=== PATIENT | female | born 2000 | race African-American/Black ===

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

== ENCOUNTER 2019-02-14 11:32 | Emergency (ER) | payer SELFPAY ==
[2019-02-14] MEDS ORDERED: Ketorolac Tromethamine 30 MG/ML VIAL ONE (12:55)
[2019-02-14] MEDS ORDERED: Ketorolac Tromethamine 60 MG/2 ML VIAL ONE (12:59)
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
[2019-02-14] MEDS ORDERED: Bacitracin 1 PK ONE (14:00)
== END 2019-02-14 14:06 | disposition home or self-care (01) ==
LOC: ERS 11:32
DX: S02.31XA Fracture of orbital floor, right side, initial encounter for closed fracture (principal); J45.909 Unspecified asthma, uncomplicated; F41.9 Anxiety disorder, unspecified; F31.9 Bipolar disorder, unspecified; F17.290 Nicotine dependence, other tobacco product, uncomplicated; F90.9 Attention-deficit hyperactivity disorder, unspecified type; W22.8XXA Striking against or struck by other objects, initial encounter
CPT/HCPCS: 70486; 96372; J1885

== ENCOUNTER 2019-04-07 11:59 | Emergency (ER) | payer SELFPAY ==
[2019-04-07 12:29] LABS: #Basophils 0.1 thou/uL (0.0-0.2); #Eosinphils 0.1 thou/uL (0.0-0.7); #Lymphocytes 2.1 thou/uL (1.20-3.40); #Monocytes 0.5 thou/uL (0.11-0.59); #Neutrophils 6.2 thou/uL (1.40-6.50); %Basophils 1.2 % (0.0-1.0); %Eosinophils 1.3 % (0.0-10.0); %Lymphocytes 22.8 % (28.0-48.0); %Monocytes 5.8 % (0.0-4.0); Hemoglobin 13.7 g/dL (12.0-16.0); Mean Corpuscular HGB CONC 34.4 g/dL (32.0-36.0); Mean Corpuscular Hemoglobin 29.2 pg (25.0-35.0); Mean Platelet Volume 7.9 fL (7.4-10.4); Platelet Count 206 thou/uL (130-400); RBC Distribution Width 12.7 % (11.5-14.5); Red Blood Cell (RBC) Count 4.67 mill/uL (4.00-5.20)
--- NOTE | 2019-04-07 13:00 | ULT ---
EXAM: Pelvic ultrasound HISTORY: Pelvic pain in a female COMPARISON: None TECHNIQUE: Multiple grayscale and color Doppler images were obtained in a transabdominal and transvag inal pelvic ultrasound. Spectral analysis of the Doppler waveforms of the ovaries were performed. FINDINGS: UTERUS: There is an intrauterine gestational sac. This contains a yolk sac and pole. Descanso-rump length: 2 mm which estimates gestational age at 5 weeks 5 days. A heart rate is unable to be detected at this time. A small hypoechoic area is seen adjacent to the gestational sac which could represent a small subchor ionic hemorrhage. No free fluid is seen in the pelvis. RIGHT OVARY: Normal flow without focal mass. LEFT OVARY: Normal flow without focal mass. IMPRESSION: Single intrauterine with estimated age of 5 weeks 5 days.
[2019-04-07 13:14] LABS: Bilirubin Negative (Negative); Blood, Urine 2+ (Negative); Clarity Turbid (Clear); Glucose, Urine (Dipstick) Normal (Negative); Leukocyte 500 Leu/uL (Negative); Nitrite Negative (Negative); Protein, Urine (Dipstick) 30 mg/dL (Neg-Trace); Urobilinogen Normal mg/dL (Less than 2); WBC/HPF Greater than 50 HPF (0-3)
[2019-04-07 13:16] LABS: Pregnancy Test - Urine (BHCG) POSITIVE (Negative); Pregu Control Background? CLEAR/WHITE (CLR/WHITE); Pregu Control Bar Appear? YES (CONTROL BAR); Specific Gravity 1.018 (1.002-1.036)
[2019-04-07 13:21] LABS: Bacteria/HPF 2+ HPF (None Seen)
== END 2019-04-07 13:45 | disposition home or self-care (01) ==
LOC: ERS 11:59
DX: O20.0 Threatened abortion (principal); O99.511 Diseases of the respiratory system complicating pregnancy, first trimester; J45.909 Unspecified asthma, uncomplicated; O99.341 Other mental disorders complicating pregnancy, first trimester; F31.9 Bipolar disorder, unspecified; F90.9 Attention-deficit hyperactivity disorder, unspecified type; F41.9 Anxiety disorder, unspecified; F17.290 Nicotine dependence, other tobacco product, uncomplicated; O99.331 Smoking (tobacco) complicating pregnancy, first trimester; Z3A.01 Less than 8 weeks gestation of pregnancy
CPT/HCPCS: 36415; 76856; 81003; 81015; 81025; 84702; 85025; 86900; 86901; 87480; 87491; 87510; 87591; 87660

== ENCOUNTER 2019-05-09 22:33 | Emergency (ER) | payer OTHER, SELFPAY ==
[2019-05-09 23:14] LABS: #Basophils 0.1 thou/uL (0.0-0.2); #Eosinphils 0.1 thou/uL (0.0-0.7); #Lymphocytes 2.8 thou/uL (1.20-3.40); #Monocytes 0.9 thou/uL (0.11-0.59); %Basophils 0.4 % (0.0-1.0); %Eosinophils 0.9 % (0.0-10.0); %Monocytes 7.1 % (0.0-4.0); %Neutrophils 69.6 % (31.0-61.0); Hemoglobin 11.7 g/dL (12.0-16.0); Mean Corpuscular Hemoglobin 29.8 pg (25.0-35.0); Mean Corpuscular Volume 85.1 fL (78.0-98.0); Mean Platelet Volume 8.2 fL (7.4-10.4); Platelet Count 214 thou/uL (130-400); RBC Distribution Width 12.7 % (11.5-14.5); Red Blood Cell (RBC) Count 3.94 mill/uL (4.00-5.20); White Blood Cell (WBC) Count 12.9 thou/uL (4.8-10.8)
[2019-05-09 23:43] LABS: ALT (SGPT) Less than 7 U/L (8-55); AST (SGOT) 11 U/L (5-30); Alkaline Phosphatase 51 U/L (40-100); Anion Gap 11 mmol/L (10-20); BUN (Urea Nitrogen) 6 mg/dL (8.4-21.0); Bilirubin, Total 0.4 mg/dL (0.2-1.2); Calc. Creatinine Clearance 0 mL/min (70-130); Calcium 9.6 mg/dL (7.8-10.44); Carbon Dioxide 25 mmol/L (22-29); Chloride 103 mmol/L (98-107); Estimated GFR-MDRD Greater than 90; Globulin 3.2 g/dL (2.4-3.5); Glucose 78 mg/dL (70-105); Potassium 3.1 mmol/L (3.5-5.1); Protein, Total 7.2 g/dL (6.0-8.3); Sodium 136 mmol/L (136-145)
--- NOTE | 2019-05-10 00:02 | ULT ---
Pelvic ultrasound: 05/09/2019 COMPARISON: None HISTORY: female with vaginal spotting TECHNIQUE: Multiplanar grayscale sonographic imaging of the pelvis obtained the transverse abdominal imaging. The ovaries are assessed with color flow and spectral analysis FINDINGS: There is an intrauterine gestational sac containing a single pole with a crown-rump l ength of 3.3 cm, correlating with a 10 week 1 day gestation. heart rate is 171 bpm. There is a hypoechoic angulated 2.6 x 2.3 x 0.7 cm collection adjacent to the gestational sac suggest ing a small subchorionic hemorrhage. Right ovary measures 3.7 x 2.1 x 2.9 cm and contains a small cyst measuring 7 mm. Right ovary demonst rates normal blood flow. Left ovary measures 2.9 x 1.1 x 1.8 cm and demonstrates normal blood flow without evidence for mass. No free fluid noted in the pelvic cul-de-sac. Estimated date of delivery is 12/05/2019 IMPRESSION: Single intrauterine gestation with heart rate of 171 bpm. Probable very small subch orionic hemorrhage as detailed above.
[2019-05-10] MEDS ORDERED: Potassium Chloride 20 MEQ TAB ONE (00:09)
== END 2019-05-10 00:15 | disposition home or self-care (01) ==
LOC: ERS 22:33
DX: O20.8 Other hemorrhage in early pregnancy (principal); O99.341 Other mental disorders complicating pregnancy, first trimester; F31.9 Bipolar disorder, unspecified; F41.9 Anxiety disorder, unspecified; F90.9 Attention-deficit hyperactivity disorder, unspecified type; Z3A.10 10 weeks gestation of pregnancy
CPT/HCPCS: 36415; 76856; 80053; 84702; 85025; 86850; 86870; 86900; 86901

== ENCOUNTER 2019-06-07 13:40 | Emergency (ER) | payer OTHER ==
[2019-06-07] MEDS ORDERED: Acetaminophen 500 MG TAB ONE (14:32)
[2019-06-07 14:48] LABS: #Basophils 0.1 thou/uL (0.0-0.2); #Eosinphils 0.1 thou/uL (0.0-0.7); #Lymphocytes 1.5 thou/uL (1.20-3.40); #Monocytes 0.7 thou/uL (0.11-0.59); #Neutrophils 12.1 thou/uL (1.40-6.50); %Basophils 0.5 % (0.0-1.0); %Eosinophils 0.4 % (0.0-10.0); %Lymphocytes 10.7 % (28.0-48.0); %Neutrophils 83.4 % (31.0-61.0); Hemoglobin 13.3 g/dL (12.0-16.0); Mean Corpuscular HGB CONC 34.9 g/dL (32.0-36.0); Mean Corpuscular Hemoglobin 29.9 pg (25.0-35.0); Mean Corpuscular Volume 85.8 fL (78.0-98.0); Mean Platelet Volume 8.2 fL (7.4-10.4); Platelet Count 243 thou/uL (130-400); RBC Distribution Width 12.4 % (11.5-14.5); Red Blood Cell (RBC) Count 4.45 mill/uL (4.00-5.20); White Blood Cell (WBC) Count 14.5 thou/uL (4.8-10.8)
[2019-06-07 15:56] LABS: Bacteria/HPF None Seen HPF (None Seen); Bilirubin Negative (Negative); Blood, Urine Negative (Negative); Clarity Clear (Clear); Glucose, Urine (Dipstick) Normal (Negative); Leukocyte 25 Leu/uL (Negative); Nitrite Negative (Negative); Protein, Urine (Dipstick) 10 mg/dL (Neg-Trace); RBC/HPF 0-3 HPF (0-3); Squamous Epithelial 0-3 HPF (0-3); Urobilinogen Normal mg/dL (Less than 2)
--- NOTE | 2019-06-07 15:57 | ULT ---
LIMITED OB ULTRASOUND: Date: 06/07/2019 HISTORY: Vaginal bleeding. FINDINGS: A single, live intrauterine gestation is seen with measurements corresponding to an estimated gestati onal age of 14 weeks 4 days and JOCELYN at 12/02/2019. measurements are as follows: BPD: 2.67 cm, 14 weeks 5 days HC: 10.36 cm, 14 weeks 6 days AC: 8.75 cm, 15 weeks 0 days FL: 1.40 cm, 14 weeks 1 day heart rate measures 158 beats/minute. Placenta is posteriorly located without evidence of placenta previa. There is a tiny subchorionic hemorrhage measuring 3.5 x 2.6 x 1.1 cm. IMPRESSION: 1. Single, live intrauterine gestation of 14 weeks 4 days estimated gestational age and JOCELYN at 12/01. 2. Small subchorionic hemorrhage. POS: [facility]
[2019-06-08 19:02] LABS: Chlamydia by PCR Not Detected (NotDetected); GC by PCR Not Detected (NotDetected)
== END 2019-06-07 16:31 | disposition home or self-care (01) ==
LOC: ERS 13:40
DX: O20.0 Threatened abortion (principal); Z3A.14 14 weeks gestation of pregnancy; O99.342 Other mental disorders complicating pregnancy, second trimester; F31.9 Bipolar disorder, unspecified; F90.9 Attention-deficit hyperactivity disorder, unspecified type
CPT/HCPCS: 36415; 76815; 81003; 81015; 84702; 85025; 86900; 86901; 87480; 87491; 87510; 87591; 87660; 93005

== ENCOUNTER 2019-09-21 15:45 | Observation (INO) | payer OTHER ==
[2019-09-21 16:43] LABS: #Basophils 0.1 thou/uL (0.0-0.2); #Eosinphils 0.1 thou/uL (0.0-0.7); #Monocytes 0.9 thou/uL (0.11-0.59); #Neutrophils 8.5 thou/uL (1.40-6.50); %Basophils 0.6 % (0.0-1.0); %Lymphocytes 17.4 % (28.0-48.0); %Monocytes 7.6 % (0.0-4.0); %Neutrophils 73.4 % (31.0-61.0); Hemoglobin 10.4 g/dL (12.0-16.0); Mean Corpuscular HGB CONC 33.2 g/dL (32.0-36.0); Mean Corpuscular Hemoglobin 28.5 pg (25.0-35.0); Mean Corpuscular Volume 85.8 fL (78.0-98.0); Mean Platelet Volume 8.9 fL (7.4-10.4); Platelet Count 175 thou/uL (130-400); RBC Distribution Width 11.7 % (11.5-14.5); Red Blood Cell (RBC) Count 3.65 mill/uL (4.00-5.20); White Blood Cell (WBC) Count 11.5 thou/uL (4.8-10.8)
[2019-09-21 17:10] LABS: ALT (SGPT) 11 U/L (8-55); AST (SGOT) 16 U/L (5-34); Albumin 3.6 g/dL (3.5-5.0); Alkaline Phosphatase 96 U/L (40-100); Anion Gap 12 mmol/L (10-20); BUN (Urea Nitrogen) Less than 4 mg/dL (7.0-18.7); Bilirubin, Total 0.3 mg/dL (0.2-1.2); Calc. Creatinine Clearance 0 mL/min (70-130); Calcium 9.1 mg/dL (7.8-10.44); Carbon Dioxide 25 mmol/L (22-29); Chloride 105 mmol/L (98-107); Estimated GFR-MDRD Greater than 90; Globulin 3.7 g/dL (2.4-3.5); Glucose 76 mg/dL (70-105); Potassium 3.3 mmol/L (3.5-5.1); Protein, Total 7.3 g/dL (6.0-8.3); Sodium 139 mmol/L (136-145)
[2019-09-21] MEDS ORDERED: Acetaminophen 500 MG TAB ONE (17:38)
[2019-09-21] MEDS ORDERED: Labetalol HCl 100 MG/20 ML VIAL ONE (17:38)
[2019-09-21] MEDS ORDERED: Ondansetron PF 4 MG/2 ML Vial IVP PRN (19:56)
[2019-09-21] MEDS ORDERED: hydrALAZINE 20 MG/ML VIAL SLOW IVP PRN (19:56)
[2019-09-21 20:27] LABS: Creatinine, Urine 50.33 mg/dL (47-110); Protein, Urine Random Quant Less than 10 mg/dL (1-14)
[2019-09-21 21:17] VITALS: BMI 21.9
[2019-09-21] MEDS ORDERED: Zolpidem Tartrate 5 MG TAB PO PRN (22:50)
[2019-09-21] MEDS: Betamet Acet/Betamet Na Ph 30 MG/5 ML VIAL IM SCH (23:05)
--- NOTE | 2019-09-22 05:49 | HP ---
PRIMARY OB: Cris Dawkins M.D. CHIEF COMPLAINT: Elevated blood pressure. HISTORY OF PRESENT ILLNESS: The patient is a 19-year-old G1, P0 female with an intrauterine at 29 weeks gestation, who is presenting to the emergency room with left arm shooting pain and neck and shoulder pain. After evaluation, the patient was thought to have a radiculopathy, and during her evaluation, the patient was noted to have elevated blood pressures with one documented at 167/103, 158/103, and 152/115. Given these findings, the patient was transferred to Labor and Delivery for further evaluation. Upon presentation, the patient denies headache, chest pain. She does report some shortness of breath with difficulty sleeping laying down, but this has been ongoing for much of her recent weeks. The patient does have a history of asthma. The patient denies chest pain. Denies nausea, vomiting, diarrhea or constipation, hip problems, knee problems, muscle weakness. She denies vaginal bleeding or leakage of fluid. She denies right upper quadrant pain. PAST MEDICAL HISTORY: Significant for bipolar disorder, anxiety, depression, ADHD and is undergoing anger management. She has a history of suicide attempts back in 2016, but denies any current stress moving her in that direction. SOCIAL HISTORY: Denies drug, alcohol, or tobacco use. ALLERGIES: NO KNOWN DRUG ALLERGIES. MEDICATIONS: vitamins. PHYSICAL EXAMINATION: VITAL SIGNS: Upon arrival to Labor and Delivery, presenting blood pressure is 140/86, heart rate of 88, respiratory rate 16, temperature 98.7. Subsequent blood pressures over 2 hours, the patient has remained in predominantly mild range pressures in the 140s over 80s to 90s, heart rates in 80s to 90s. GENERAL: She appears to be in no acute distress. She is alert, oriented, cooperative, and pleasant to interact with. HEAD: Normocephalic and atraumatic. LUNGS: Clear to auscultation bilaterally. HEART: Regular rate and rhythm. ABDOMEN: Gravid and soft, nontender. EXTREMITIES: Nontender, nonedematous. She has 1+ DTRs. No clonus. The patient has a heart tracing with fetus in the 130s with moderate long-term variability, positive 15 x 15 accelerations, positive accelerations, no decelerations. Tocometer showing irritability, but no consistent contraction pattern. LABORATORY STUDIES: CBC shows a white count of 11.5, hemoglobin of 10.4, hematocrit 31.3, and platelets of 175,000. Sodium of 139, potassium of 3.3, creatinine of 0.78, uric acid of 4.6, AST of 16, ALT of 11. Urine; random total protein is less than 10, urine creatinine of 50 making a ratio incalculable. ASSESSMENT AND PLAN: The patient is a 19-year-old female primip at 29 weeks gestation with incidental findings of elevated blood pressure. The patient's blood pressures have remained in the mild range here in Labor and Delivery, and the patient has no indication for treatment or magnesium for seizure prophylaxis. However, given the presence of the blood pressures at such an early gestational age, plan at this time is to keep the patient for steroid administration and blood pressure monitoring. Should the patient begin having signs of severe features, headache, elevated lab findings, we will administer magnesium for seizure prophylaxis. I will be notifying her primary provider, Dr. Dawkins. Fetus has had a category 1 tracing and reactive NST. The patient is being admitted for steroid administration and blood pressure observation. She has not required treatment or magnesium at this time, but we will administer when indicated. Fetus has a category 1 tracing and reactive NST. Job ID: [id number]
--- NOTE | 2019-09-22 11:27 | PDOC.EVN ---
Event Note - Event Note Event Note: No c/o. BPs stable, no severe range values seen. 2nd dose of BMX due late tonight.
[2019-09-22 11:56] LABS: SARS-CoV-2 MS2 Positive; SARS-CoV-2 N Gene Negative; SARS-CoV-2 S Gene Negative; SARS-CoV-2 by NAA Not Detected (NotDetected); SARS-CoV-2 orf1ab Negative
[2019-09-22] MEDS ORDERED: Ondansetron ODT 4 MG TAB PO PRN (13:07)
[2019-09-22] MEDS: Acetaminophen 325 MG TAB PO PRN ×2 (13:39→21:41)
[2019-09-22] MEDS: Betamet Acet/Betamet Na Ph 30 MG/5 ML VIAL IM SCH (22:56)
--- NOTE | 2019-09-22 23:05 | PDOC.EVN ---
Event Note - Event Note Event Note: No c/o. @nd dose of BMX given. No severe range BPs seen thru the day. FHTs reassuring. Plan: DC home. Precautions reviewed.. Call Dr. Mcdermott's office for f/u.
== END 2019-09-22 23:30 | disposition home health service (06) ==
LOC: ERS 15:45 → L&D/OP 19:25 → L&D 20:26 → INTOOBSV 20:26
PROVIDERS: ADMIT Student in an Organized Health Care Education/Training Program; ATTEND Student in an Organized Health Care Education/Training Program
DX: O99.89 Other specified diseases and conditions complicating pregnancy, childbirth and the puerperium (principal); R03.0 Elevated blood-pressure reading, without diagnosis of hypertension; O99.343 Other mental disorders complicating pregnancy, third trimester; F90.9 Attention-deficit hyperactivity disorder, unspecified type; F41.9 Anxiety disorder, unspecified; F31.9 Bipolar disorder, unspecified; Z3A.29 29 weeks gestation of pregnancy; Z91.5 Personal history of self-harm
CPT/HCPCS: 36415; 80053; 82570; 84156; 84550; 85025; 87635; 96372; 99285; G0378; J0702; Q0162; U0003

== ENCOUNTER 2019-10-28 11:09 | Inpatient (IN) | payer OTHER ==
[2019-10-28] MEDS ORDERED: Butorphanol Tartrate 1 MG/ML VIAL SLOW IVP PRN (11:19)
[2019-10-28] MEDS ORDERED: HYDROcodone/Acetaminophen 5/325 mg Tablet PO PRN (11:19)
[2019-10-28] MEDS ORDERED: hydrALAZINE 20 MG/ML VIAL SLOW IVP PRN ×2 (11:19→20:30)
[2019-10-28] MEDS ORDERED: Lidocaine 1% (PF) 30 ML VIAL SC PRN (11:19)
[2019-10-28] MEDS ORDERED: Promethazine HCl 25 MG/ML VIAL IM PRN ×2 (11:19→12:49)
[2019-10-28] MEDS ORDERED: NS / Oxytocin 40 units/1000ml 1,000 ML IV PRN (11:19)
[2019-10-28] MEDS ORDERED: Ondansetron PF 4 MG/2 ML Vial IVP PRN ×2 (11:19→12:49)
[2019-10-28] MEDS ORDERED: Ibuprofen 800 MG TAB PO PRN (11:19)
[2019-10-28 11:20] VITALS: BMI 21.9
[2019-10-28] MEDS ORDERED: Penicillin G Potassium 5 MILL.UNITS in Sodium Chloride 0.9% 100 ML IVPB SCH (11:30)
[2019-10-28] MEDS ORDERED: NS w/ Oxytocin 10 units 500 ML IV SCH ×2 (11:30)
[2019-10-28] MEDS: Lactated Ringer's 1,000 ML IV SCH ×2 (11:36→16:49)
--- NOTE | 2019-10-28 11:39 | PDOC.BPN ---
- Brief Progress Note OBGYN semiconductor development technician I have seen the patient at bedside. Orders in. See H&P
[2019-10-28] MEDS ORDERED: Penicillin G Potassium 5 MILL.UNITS VIAL ONE (11:40)
[2019-10-28] MEDS ORDERED: Fentanyl 4 mcg/Bup 0.1% Cadd 100 ML ONE ×3 (11:48→19:50)
--- NOTE | 2019-10-28 12:10 | HP ---
LOCATION: [facility], bed 2. REASON FOR ADMISSION: Spontaneous rupture of membranes at 34 weeks and 6 days. HISTORY OF PRESENT ILLNESS: In brief, this patient is a patient of Dr. Mcdermott who has asked me to care for this patient as he is unavailable. This patient is a 19-year-old G1, P0, at 34 weeks and 6 days who arrives with spontaneous contractions and leakage of fluid this morning. She denies any issues, although she does have a history of asthma, which is well controlled and she uses MDI inhalers as necessary. She has good movement. Denies fevers, cough, URI symptoms, or vaginal bleeding. She states that the fluid lost was clear. REVIEW OF SYSTEMS: Complete review of systems was checked and is otherwise negative unless specified in the HPI. PAST MEDICAL HISTORY: Significant for well-controlled asthma with MDI use. ALLERGIES: NONE. PAST SURGICAL HISTORY: As follows: The patient's mother who was at bedside told me that when she was a child she had a "balloon therapy" for her heart, but she has had no functional limitations. This was not open-heart surgery. SOCIAL HISTORY: Negative for alcohol, tobacco, and drug use. OB HISTORY: She is a G1, P0 at 34 weeks and 6 days. On the external monitor, heart tones are in the 140s and they are reactive. Contractions are irregular on tocodynamometer, but it is hard for the toco to pick pulling machine operator because the patient is moving around due to some contraction discomfort. PHYSICAL EXAMINATION: VITAL SIGNS: The patient's blood pressure was 150/100, but this was with contraction and the patient was moving around. Pulse is in the 90s. Respirations are 18 to 20 and unlabored. GENERAL: She is in no acute distress, but is having some contraction discomfort, but she rests in between contractions. ABDOMEN: Size appropriate. Based on cervical exam by the RN, she is 3 cm dilated, about 80% effaced, -2 station with clear fluid noted on exam compatible with ruptured membranes. ASSESSMENT: This is a patient who is a 19-year-old G1 at 34 weeks and 6 days (late ) with latent labor and ruptured membranes. PLAN: 1. GBS coverage with penicillin as she is under 37 weeks and she is GBS unknown. 2. No Hemabate due to her asthma history. 3. I reviewed Pitocin with her and her mother, and Brisa, who is the patient's nurse at bedside. 4. Monitor blood pressures, although I feel that the first one was taken during a contraction and the patient was moving, which means it may not have been accurate. 5. Follow for now. Job ID: [id number]
[2019-10-28 12:21] LABS: Hemoglobin 10.6 g/dL (12.0-16.0); Mean Corpuscular HGB CONC 34.9 g/dL (32.0-36.0); Mean Corpuscular Hemoglobin 28.8 pg (25.0-35.0); Mean Corpuscular Volume 82.3 fL (78.0-98.0); Mean Platelet Volume 8.6 fL (7.4-10.4); Platelet Count 203 thou/uL (130-400); RBC Distribution Width 12.6 % (11.5-14.5); Red Blood Cell (RBC) Count 3.69 mill/uL (4.00-5.20); White Blood Cell (WBC) Count 9.6 thou/uL (4.8-10.8)
[2019-10-28] MEDS ORDERED: EPHEDRINE 25 MG/5 ML SYRINGE SLOW IVP PRN (12:49)
[2019-10-28] MEDS ORDERED: Acetaminophen 325 MG TAB PO PRN (12:49)
[2019-10-28] MEDS ORDERED: Lactated Ringer's 500 ML IV PRN (12:49)
[2019-10-28] MEDS ORDERED: Naloxone HCl 0.4 mg/ml Vial IVP PRN ×2 (12:49)
[2019-10-28] MEDS ORDERED: diphenhydrAMINE 50 MG/ML VIAL IVP PRN (12:49)
[2019-10-28] MEDS ORDERED: Fentanyl 4 mcg/Bupivacaine 0.1% Cassette 100 ML EPIDURAL SCH (13:00)
[2019-10-28] MEDS ORDERED: Communication Order-Pharmacy FS SCH (13:00)
[2019-10-28 13:02] LABS: ALT (SGPT) 9 U/L (8-55); AST (SGOT) 20 U/L (5-34); Albumin 3.4 g/dL (3.5-5.0); Alkaline Phosphatase 155 U/L (40-100); Anion Gap 16 mmol/L (10-20); BUN (Urea Nitrogen) 4 mg/dL (7.0-18.7); Bilirubin, Total 0.9 mg/dL (0.2-1.2); Calc. Creatinine Clearance 84 mL/min (70-130); Calcium 8.9 mg/dL (7.8-10.44); Carbon Dioxide 22 mmol/L (22-29); Chloride 105 mmol/L (98-107); Estimated GFR-MDRD Greater than 90; Globulin 3.5 g/dL (2.4-3.5); Glucose 92 mg/dL (70-105); Potassium 3.3 mmol/L (3.5-5.1); Protein, Total 6.9 g/dL (6.0-8.3); Sodium 140 mmol/L (136-145)
[2019-10-28 13:06] LABS: Syphilis Antibody Nonreactive (Nonreactive); Syphilis Antibody Index 0.04 S/CO (<1.00 Non-Reactive)
[2019-10-28] MEDS ORDERED: Bupivacaine 0.25% HCL 30 ML VIAL ONE (13:13)
[2019-10-28 13:15] LABS: HBSAg Index 0.18 S/CO (0-0.99); HIV (1/2) Antibody/Antigen Non-Reactive (NonReactive); HIV 1/2 INDEX 0.09 S/CO (<1.00); Hep B Surf Ag Non-Reactive S/CO (NonReactive); Hep C IgG Ab Non-Reactive (NonReactive); Hep C Index 0.16 S/CO (0-0.79)
[2019-10-28] MEDS ORDERED: Magnesium Sulfate 20 gm/500 ml 20 GM/500 ML BAG ONE (13:29)
[2019-10-28] MEDS ORDERED: Labetalol HCl 100 MG/20 ML VIAL ONE (13:29)
[2019-10-28] MEDS ORDERED: Calcium Gluc 4.6 MEQ/10 ML (100 MG/ML) SLOW IVP PRN (13:30)
[2019-10-28] MEDS ORDERED: Magnesium Sulfate 20 GM/WATER 500 ML BAG IVPB SCH (13:30)
--- NOTE | 2019-10-28 13:31 | PDOC.BPN ---
- Brief Progress Note Severe range BPs noted. required hydralazine x1. I have ordered labtolol 10mg SIVP x 1 now. MagSulfate ordered for severe BPs. BPs reviewed. CMP normal.
[2019-10-28] MEDS ORDERED: Labetalol HCl 100 MG/20 ML VIAL SLOW IVP SCH (13:45)
[2019-10-28] MEDS: Magnesium Sulfate 20 gm/500 ml 20 GM/500 ML BAG IVPB SCH ×2 (13:49→21:45)
--- NOTE | 2019-10-28 13:50 | PDOC.BPN ---
- Brief Progress Note OBGYN Labor assessment at bedside mag use CS questioning Status: Asked to be at bedside (here now) to review status with patient's mother. Patient's mother requesting CS for the paient. Patient is scared and unsure if she desires CS. I reviewed CS as elective based on her desire as a possibility but I think she can do this vaginally. Risks and benefits reviewed, CX by me is 5/90/0 without pitocin. Labetolol 10mg SIVP given by RN just now. I did review that CS may still occur for baby status, arrest of labor, or if she desires. IUPC explained by me to them. If CTX adequate, we will hold off on pit. I will leave the decision for CS or to continue labor up to the patient. (I believe she is just scared at this time). BP after med is 168/94...if still elevated in 15, follow with 20mg labetolol. DEZ in use.
--- NOTE | 2019-10-28 15:36 | PRG ---
DATE OF SERVICE: 10/28/2019 AMNIO INFUSION NOTE: TIME OF EVALUATION: Roughly 1420 hours, it is now 1428 hours. LOCATION: [facility]. SUMMARY: In brief, I evaluated the patient at the bedside. She is having occasional [id number] variable decelerations and the IUPC shows contractions that appeared adequate. Pitocin is off. She is on her side and we have given IV fluid bolus. I have cleared the patient for amnio infusion per protocol for variable decelerations. There is still moderate variability. There is no evidence of late decelerations. The plan of care was reviewed with the patient. Job ID: [id number]
[2019-10-28] MEDS: Penicillin G 2.5 MILL.units 2.5 MILL.UNITS in Premix Bag 1 BAG IVPB SCH (16:49)
[2019-10-28] MEDS: Labetalol HCl 100 MG/20 ML VIAL SLOW IVP SCH ×2 (16:57→20:59)
[2019-10-28] MEDS: NS / Oxytocin 40 units/1000ml 1,000 ML IV SCH (20:21)
[2019-10-28 20:27] LABS: SARS-CoV-2 NAA Rapid Test Not Detected (NotDetected)
--- NOTE | 2019-10-28 20:29 | PDOC.OPDEL ---
OB Operative/Delivery Note Delivery Dr/Surgeon: Tim Assist: None Pre-Delivery Diagnosis: other (PTL, Severe PreE) Procedure/Post Delivery Dx: spontaneous vaginal delivery (at 2019; Placenta spont delievered wong at 2022; intact) Weeks gestation: 34 (6 days) Anesthesia: local - Additional Findings/Plan Placenta delivered: spontaneous Repaired Obstetrical Laceration: none Estimated blood loss: 200 Compilations/Other Findings: Baby with CPAP at delivery but well and stable; NICU present. No vag packs, no NC, counts correct. Post delivery plan: recovery in LICU (to continue MagSulfate)
[2019-10-28] MEDS ORDERED: Milk Of Magnesia 30 ML UDCUP PO PRN (20:30)
[2019-10-28] MEDS ORDERED: Acetaminophen/Codeine 30-300mg Tablet PO PRN ×2 (20:30)
[2019-10-28] MEDS ORDERED: Lanolin Ointment 7 GM TUBE TOP PRN (20:30)
[2019-10-28] MEDS ORDERED: Bisacodyl 10 MG SUPP PR PRN (20:30)
--- NOTE | 2019-10-28 23:17 | PDOC.BPN ---
- Brief Progress Note Encounter Date: 10/28/19 ([id number]) Encounter Time: 23:30 BP at 160s. Will give procardia 10mg (labetolol 50mg total given prior).UOP very good.
[2019-10-28] MEDS ORDERED: NIFEdipine 10 MG CAP PO SCH (23:30)
[2019-10-29] MEDS: NS / Oxytocin 40 units/1000ml 1,000 ML IV SCH (04:30)
--- NOTE | 2019-10-29 07:00 | PDOC.PP ---
Post Progress Note Post Day #: 1(Still on MagSulfate) Subjective: Doing well. PO intake tolerated: yes Flatus: yes Ambulation: yes Vital Signs (12 hours) Pulse BP 10/28/19 20:59 111 H 160/103 H Weight Weight 120 lb Vitals reviewed in QS. BPs range from 150-130/80-90s - Physical Examination Respiratory: clear to auscultation bilaterally Abdominal: + bowel sounds, lochia, no distention, appropriately TTP Extremities: negative homans (B) Neurological: no gross focal deficits Psychiatric: A&Ox3, normal affect Result Diagrams: 10/28/19 11:41 10/28/19 11:41 Additional Labs: Post Labs Blood Type O POSITIVE 10/28/19 11:41 Hep Bs Antigen Non-Reactive S/CO (NonReactive) 10/28/19 11:41 (1) Vaginal delivery Code(s): O80 - ENCOUNTER FOR FULL-TERM UNCOMPLICATED DELIVERY Status: Acute (2) Severe pre-eclampsia affecting childbirth Code(s): O14.14 - SEVERE PRE-ECLAMPSIA COMPLICATING CHILDBIRTH Status: Acute - Assessment/Plan Doing well. Needed po procardia x 1 last pm (10mg). Continue Mag until this PM.
[2019-10-29] MEDS: Ibuprofen 800 MG TAB PO SCH ×4 (07:20→21:46)
[2019-10-29] MEDS: Docusate Calcium (SURFAK) 240 MG CAP PO SCH ×3 (07:49→21:47)
[2019-10-29] MEDS ORDERED: Adacel (T-DAP) 0.5 ML SYRINGE IM ONE (09:00)
--- NOTE | 2019-10-29 09:40 | PDOC.EVN ---
Event Note - Event Note Event Note: Called to room for patient/family consult. Per RN patient is refusing PRN BP meds and is planning to leave AMA. Per RN patient and mom are collaborating on this plan and her mom is not supportive of the medical plan of care. PPD sp w severe preeclampsia. In discussion with patient she doesn't feel well, since magnesium started she feels weak and nauseated. We discussed decreasing magnesium now to 1gm/hr NOW and STAT magesium level. Pt agrees to oral PRN meds for HTN and procardia 10mg PRN severe BP reviewed. I discussed the risk of SEVERE PIH, the short and ocean transportation intermediary risk of severe range BP, and the importance of having healthy range BP prior to going home. Pt and mother pleasantly agreed to the plan of care. Will FU magnesium level.
[2019-10-29] MEDS ORDERED: NIFEdipine 10 MG CAP PO SCH (09:45)
[2019-10-29] MEDS: Ferrous Sulfate 325 MG TAB PO SCH ×2 (11:32→17:05)
[2019-10-29] MEDS: Lactated Ringer's 1,000 ML IV SCH ×3 (11:32→18:42)
[2019-10-29] MEDS: Prenatal Vitamin 1 TAB PO SCH (11:32)
[2019-10-29] MEDS ORDERED: NIFEdipine 10 MG CAP PO PRN (15:49)
[2019-10-29] MEDS: Penicillin G 2.5 MILL.units 2.5 MILL.UNITS in Premix Bag 1 BAG IVPB SCH (17:06)
[2019-10-30] MEDS: Lactated Ringer's 1,000 ML IV SCH ×2 (05:18→11:51)
[2019-10-30] MEDS: Ibuprofen 800 MG TAB PO SCH ×2 (05:22→15:29)
--- NOTE | 2019-10-30 08:13 | PDOC.PP ---
Post Progress Note Post Day #: 2 PO intake tolerated: yes Flatus: yes Ambulation: yes Vital Signs (12 hours) Temp Pulse Resp BP 10/30/19 05:15 98.3 F 62 18 142/75 H 10/30/19 00:35 98.7 F 82 18 136/90 Weight Weight 120 lb - Physical Examination General: NAD Respiratory: non-labored breathing Abdominal: no distention, appropriately TTP Fundus firm & at: umb Neurological: no gross focal deficits Psychiatric: normal affect Result Diagrams: 10/28/19 11:41 10/28/19 11:41 Additional Labs: Post Labs Blood Type O POSITIVE 10/28/19 11:41 Hep Bs Antigen Non-Reactive S/CO (NonReactive) 10/28/19 11:41 - Assessment/Plan PPD2 s/p PTSVD at 34w 2/2 PPROM and PIH BP mild range, no sx PIH, s/p Mag, start labetalol 200 bid now Doing well, lochia < menses Breastpumping, baby in NICU DC home later today if BP ok.
[2019-10-30] MEDS: Labetalol 100 MG TAB PO SCH ×2 (08:25→20:29)
[2019-10-30] MEDS: Docusate Calcium (SURFAK) 240 MG CAP PO SCH ×2 (08:25→20:29)
[2019-10-30] MEDS: Ferrous Sulfate 325 MG TAB PO SCH ×2 (08:25→16:48)
[2019-10-30] MEDS: Prenatal Vitamin 1 TAB PO SCH (08:25)
--- NOTE | 2019-10-30 21:22 | PDOC.BPN ---
- Brief Progress Note Encounter Date: 10/30/19 Encounter Time: 19:30 Checked on patient prior to RN shift change as patient was eager to go home. Patient had spent most of day in NICU with and thus only 1 vital signs had been reported. Repeat BPs were 150s systolic. Discussed with patient the risks of going home with continued elevated BP and recommended we monitor her overnight. Patient voiced understanding. Subsequently, paged by RN that patient had spoken with her mother and they were wanting to leave, understanding the risks. Came to patient beside and had speaker phone call with pt's mother in presence of patient. Explained the risks of continued elevated BP in setting of severe PreE. Repeat BP checked by RN while on phone 160s systolic. Patient and mother both voiced understanding of risks including but not limited to progression to eclampsia that could result in . Mother states they will continue to monitor her BPs at home, take medications, and follow up as directed. Patient will continue to take labetolol , given dose prior to discharge. Patient will be coming to hospital to NICU to see , encourage to go by nurses station tomorrow when she comes to have BP monitored. Also encouraged to follow up with PCP on Friday or Friday for BP monitoring. Severe features discussed including SOB, vision changes, RUQ pain, chest pain, REVELES's that would warrant return to ED. Patient voiced complete understanding of discharge, alarm sxs, and follow up. All questions answered. Mother on phone also voiced understanding and all questions answered. During interview patient seemed very down/depressed. Poor eye contact, speaking in few work sentences. Patient states she just wants to go home. Denies any SI/ HI or harm to baby. She is sad her baby is in the NICU. Discussed that we are here to talk to her if needed, and encourage to reach out to PCP should sxs continue or worsening. High risk for depression. Discussed with patient if she should experience SI or thought of harm to baby to call 911 or call crisis hot line. States has good support at home. Patient discharge home.
[2019-10-30 22:31] VITALS: TEMP 97.9
[2019-10-30 22:34] VITALS: BP 146/87
== END 2019-10-30 21:54 | disposition home or self-care (01) | DRG 805 ==
LOC: L&D/OP 11:09 → L&D 11:22 → 3SW 10-29 17:57
PROVIDERS: ADMIT Obstetrics & Gynecology; ATTEND Obstetrics & Gynecology
PROC: 10E0XZZ Delivery of Products of Conception, External Approach (ICD-10-PCS; principal; 2019-10-28)
PROC: 10H07YZ Insertion of Other Device into Products of Conception, Via Natural or Artificial Opening (ICD-10-PCS; 2019-10-28)
DX: O42.913 Preterm premature rupture of membranes, unspecified as to length of time between rupture and onset of labor, third trimester (principal); O60.14X0 Preterm labor third trimester with preterm delivery third trimester, not applicable or unspecified; Z37.0 Single live birth; O76 Abnormality in fetal heart rate and rhythm complicating labor and delivery; O14.14 Severe pre-eclampsia complicating childbirth; Z20.828 Contact with and (suspected) exposure to other viral communicable diseases; Z3A.34 34 weeks gestation of pregnancy
CPT/HCPCS: 36415; 51702; 80053; 81003; 83735; 85027; 86780; 86803; 86850; 86900; 86901; 87340; 87389; 99285; J0360; J0595; J2405; J2540; J3475; J3490; S0020; U0002

== ENCOUNTER 2020-06-24 21:39 | Emergency (ER) | payer OTHER ==
[2020-06-24 23:21] LABS: #Lymphocytes 2.1 thou/uL (1.20-3.40); #Monocytes 0.7 thou/uL (0.11-0.59); #Neutrophils 5.5 thou/uL (1.40-6.50); %Basophils 0.3 % (0.0-1.0); %Eosinophils 0.3 % (0.0-10.0); %Lymphocytes 25.3 % (28.0-48.0); %Neutrophils 66.1 % (31.0-61.0); Hemoglobin 11.2 g/dL (12.0-16.0); Mean Corpuscular HGB CONC 32.9 g/dL (32.0-36.0); Mean Corpuscular Hemoglobin 26.7 pg (25.0-35.0); Mean Corpuscular Volume 81.1 fL (78.0-98.0); Mean Platelet Volume 8.5 fL (7.4-10.4); Platelet Count 226 thou/uL (130-400); RBC Distribution Width 14.7 % (11.5-14.5); Red Blood Cell (RBC) Count 4.18 mill/uL (4.00-5.20); White Blood Cell (WBC) Count 8.3 thou/uL (4.8-10.8)
== END 2020-06-24 23:33 | disposition home or self-care (01) ==
LOC: ERS 21:39
DX: K62.5 Hemorrhage of anus and rectum (principal); J45.909 Unspecified asthma, uncomplicated
CPT/HCPCS: 36415; 82274; 85025; 99283

== ENCOUNTER 2020-07-14 23:37 | Emergency (ER) | payer OTHER ==
[2020-07-15] MEDS ORDERED: Lidocaine 1% (PF) 30 ML VIAL ONE (01:58)
== END 2020-07-15 03:21 | disposition home or self-care (01) ==
LOC: ERS 23:37
DX: O23.591 Infection of other part of genital tract in pregnancy, first trimester (principal); Z3A.08 8 weeks gestation of pregnancy
CPT/HCPCS: J2001

== ENCOUNTER 2021-10-07 22:24 | Emergency (ER) | payer OTHER ==
[2021-10-07 23:02] LABS: #Basophils 0.1 thou/uL (0.0-0.2); #Lymphocytes 2.5 thou/uL (1.20-3.40); #Monocytes 0.9 thou/uL (0.11-0.59); #Neutrophils 9.5 thou/uL (1.40-6.50); %Basophils 0.6 % (0.0-1.0); %Eosinophils 0.3 % (0.0-10.0); %Lymphocytes 19.3 % (21.0-51.0); %Monocytes 6.8 % (0.0-10.0); Hemoglobin 11.9 g/dL (12.0-16.0); Mean Corpuscular HGB CONC 33.5 g/dL (32.0-36.0); Mean Corpuscular Hemoglobin 28.5 pg (27.0-31.0); Mean Corpuscular Volume 85.1 fL (78.0-98.0); Mean Platelet Volume 8.4 fL (7.4-10.4); Platelet Count 207 thou/uL (130-400); RBC Distribution Width 13.8 % (11.5-14.5); Red Blood Cell (RBC) Count 4.17 mill/uL (4.20-5.40)
[2021-10-07 23:04] LABS: Bilirubin Negative (Negative); Blood, Urine Negative (Negative); Clarity Clear (Clear); Glucose, Urine (Dipstick) Normal (Negative); Ketone, Urine Negative (Negative); Leukocyte 25 Leu/uL (Negative); Nitrite Negative (Negative); Protein, Urine (Dipstick) 20 mg/dL (Neg-Trace); RBC/HPF 0-3 HPF (0-3); Specific Gravity, Urine 1.021 (1.002-1.036); Urobilinogen Normal mg/dL (Less than 2); WBC/HPF 0-3 HPF (0-3)
[2021-10-07 23:05] LABS: Bacteria/HPF 1+ HPF (None Seen); Pregnancy Test - Urine (BHCG) Negative (Negative); Pregu Control Background? CLEAR/WHITE (CLR/WHITE); Pregu Control Bar Appear? YES (CONTROL BAR)
[2021-10-07 23:06] LABS: Specific Gravity 1.021 (1.002-1.036)
[2021-10-07 23:20] LABS: BHCG - Serum Negative (NEGATIVE); Pregs Control Background? CLEAR/WHITE (CLR/WHITE); Pregs Control Bar Appear? YES (CONTROL BAR)
[2021-10-07 23:26] LABS: ALT (SGPT) Less than 7 U/L (8-55); AST (SGOT) 14 U/L (5-34); Albumin 4.4 g/dL (3.5-5.0); Alkaline Phosphatase 70 U/L (40-110); Anion Gap 15 mmol/L (10-20); BUN (Urea Nitrogen) 6 mg/dL (7.0-18.7); Bilirubin, Total 1.2 mg/dL (0.2-1.2); Calc. Creatinine Clearance 0 mL/min (70-130); Calcium 9.9 mg/dL (7.8-10.44); Carbon Dioxide 28 mmol/L (22-29); Chloride 99 mmol/L (98-107); Estimated GFR 87; Glucose 91 mg/dL (70-105); Potassium 3.1 mmol/L (3.5-5.1); Protein, Total 9.4 g/dL (6.0-8.3); Sodium 139 mmol/L (136-145)
[2021-10-08] MEDS ORDERED: cefTRIAXone\\ROCEPHIN 500 MG VIAL ONE (01:35)
[2021-10-08] MEDS ORDERED: Ketorolac Tromethamine 30 MG/ML VIAL ONE (01:36)
[2021-10-08] MEDS ORDERED: Acetaminophen 500 MG TAB ONE (01:36)
[2021-10-08] MEDS ORDERED: Lidocaine 1% MPF 2 ML VIAL ONE (01:40)
[2021-10-08] MEDS ORDERED: Potassium Chloride 20 MEQ TAB ONE (01:50)
[2021-10-08 11:08] LABS: Chlamydia by PCR Not Detected (NotDetected); GC by PCR Not Detected (NotDetected)
[2021-10-08] MEDS ORDERED: Iopamidol 370 76% 100 ML VIAL ONE (15:33)
== END 2021-10-08 04:13 | disposition home or self-care (01) ==
LOC: ERS 22:24
DX: R10.32 Left lower quadrant pain (principal); R10.2 Pelvic and perineal pain
CPT/HCPCS: 36415; 74177; 80053; 81003; 81015; 81025; 83605; 84702; 84703; 85025; 87040; 87480; 87491; 87510; 87591; 87660; 96372; 96374; J0696; J1885; Q9967

== ENCOUNTER 2023-01-18 22:23 | Emergency (ER) | payer OTHER, SELFPAY ==
[2023-01-19] MEDS ORDERED: Metoclopramide HCl 10 MG/2 ML VIAL ONE (00:28)
[2023-01-19] MEDS ORDERED: diphenhydrAMINE 50 MG/ML VIAL ONE (00:28)
[2023-01-19] MEDS ORDERED: Ketorolac Tromethamine 30 MG/ML VIAL ONE (00:28)
== END 2023-01-19 01:17 | disposition home or self-care (01) ==
LOC: ERS 22:23
DX: R51.9 Headache, unspecified (principal); J06.9 Acute upper respiratory infection, unspecified
CPT/HCPCS: 96374; 96375; J1200; J1885; J2765

== ENCOUNTER 2023-09-11 19:18 | Emergency (ER) | payer OTHER ==
[2023-09-11 20:08] LABS: #Basophils Less than 0.03 10x3/uL (0.0-0.2); %Basophils 0.3 % (0.0-1.0); %Monocytes 5.3 % (0.0-10.0); %Neutrophils 54.2 % (42.0-75.0); Hematocrit 34.1 % (36.0-47.0); Hemoglobin 11.2 g/dL (12.0-16.0); Mean Corpuscular HGB CONC 32.8 g/dL (32.0-36.0); Mean Corpuscular Hemoglobin 26.7 pg (27.0-31.0); Mean Corpuscular Volume 81.4 fL (78.0-98.0); Mean Platelet Volume 10.7 fL (7.4-10.4); Platelet Count 218 10x3/uL (130-400); RBC Distribution Width 15.5 % (11.5-14.5); Red Blood Cell (RBC) Count 4.19 mill/uL (4.20-5.40)
[2023-09-11 20:17] LABS: BHCG - Serum Negative (NEGATIVE); Pregs Control Background? CLEAR/WHITE (CLR/WHITE); Pregs Control Bar Appear? YES (CONTROL BAR)
[2023-09-11 20:23] LABS: ALT (SGPT) Less than 5 U/L (8-55); AST (SGOT) 11 U/L (5-34); Albumin 3.9 g/dL (3.5-5.0); Alkaline Phosphatase 42 U/L (40-110); Anion Gap 12 mmol/L (10-20); BUN (Urea Nitrogen) 8 mg/dL (7.0-18.7); Calc. Creatinine Clearance 0 mL/min (70-130); Calcium 9.7 mg/dL (7.8-10.44); Carbon Dioxide 26 mmol/L (22-29); Chloride 108 mmol/L (98-107); Estimated GFR 74; Globulin 3.6 g/dL (2.4-3.5); Glucose 83 mg/dL (70-105); Potassium 3.8 mmol/L (3.5-5.1); Protein, Total 7.5 g/dL (6.0-8.3); Sodium 142 mmol/L (136-145)
[2023-09-11 20:38] LABS: Pregnancy Test - Urine (BHCG) Negative (Negative); Pregu Control Bar Appear? YES (CONTROL BAR); Specific Gravity 1.015 (1.002-1.036)
[2023-09-11 20:39] LABS: Pregu Control Background? CLEAR/WHITE (CLR/WHITE)
[2023-09-11 20:41] LABS: Bilirubin Negative (Negative); Blood, Urine 3+ (Negative); CAUTI Indications for Culture Fever or rigors; Clarity Clear (Clear); Glucose, Urine (Dipstick) Normal (Negative); Ketone, Urine Negative (Negative); Leukocyte 75 Leu/uL (Negative); Nitrite Negative (Negative); Protein, Urine (Dipstick) Negative (Neg-Trace); RBC/HPF 21-50 HPF (0-3); Specific Gravity, Urine 1.015 (1.002-1.036); Urobilinogen Normal mg/dL (Less than 2); WBC/HPF 21-50 HPF (0-3); pH, Urine 5.5 (5.0-9.0)
[2023-09-11 20:42] LABS: Bacteria/HPF 1+ HPF (None Seen)
[2023-09-11 20:43] LABS: Urine Culture Reflex Yes Yes
[2023-09-12 15:30] LABS: Chlamydia by PCR, Vaginal Swab Not Detected (NotDetected); GC by PCR, Vaginal Swab Not Detected (NotDetected)
== END 2023-09-12 02:02 | disposition home or self-care (01) ==
LOC: ERS 19:18
DX: N83.202 Unspecified ovarian cyst, left side (principal); N76.0 Acute vaginitis; N39.0 Urinary tract infection, site not specified; F17.210 Nicotine dependence, cigarettes, uncomplicated; F17.290 Nicotine dependence, other tobacco product, uncomplicated
CPT/HCPCS: 36415; 76856; 80053; 81001; 81025; 84703; 85025; 87077; 87086; 87186; 87480; 87491; 87510; 87591; 87660; 96374; 96375; J0696; J1885; J2270; J2405; J3490

== ENCOUNTER 2023-11-20 14:31 | Emergency (ER) | payer OTHER ==
[2023-11-20 15:13] LABS: #Basophils 0.03 10x3/uL (0.0-0.2); %Basophils 0.3 % (0.0-1.0); %Eosinophils 0.3 % (0.0-10.0); %Lymphocytes 25.7 % (21.0-51.0); %Monocytes 6.9 % (0.0-10.0); %Neutrophils 66.4 % (42.0-75.0); Hematocrit 33.3 % (36.0-47.0); Hemoglobin 10.7 g/dL (12.0-16.0); Mean Corpuscular HGB CONC 32.1 g/dL (32.0-36.0); Mean Corpuscular Hemoglobin 27.6 pg (27.0-31.0); Mean Platelet Volume 10.2 fL (7.4-10.4); Platelet Count 218 10x3/uL (130-400); RBC Distribution Width 15.9 % (11.5-14.5); Red Blood Cell (RBC) Count 3.87 mill/uL (4.20-5.40)
[2023-11-20] MEDS ORDERED: Ondansetron ODT 4 MG TAB ONE (15:15)
[2023-11-20 15:24] LABS: ALT (SGPT) 7 U/L (8-55); AST (SGOT) 13 U/L (5-34); Albumin 3.7 g/dL (3.5-5.0); Alkaline Phosphatase 56 U/L (40-110); Anion Gap 14 mmol/L (10-20); BUN (Urea Nitrogen) 7 mg/dL (7.0-18.7); Bilirubin, Total 0.8 mg/dL (0.2-1.2); Calc. Creatinine Clearance 0 mL/min (70-130); Calcium 9.8 mg/dL (7.8-10.44); Carbon Dioxide 17 mmol/L (22-29); Chloride 106 mmol/L (98-107); Estimated GFR 112; Globulin 4.1 g/dL (2.4-3.5); Glucose 82 mg/dL (70-105); Protein, Total 7.8 g/dL (6.0-8.3); Sodium 133 mmol/L (136-145)
[2023-11-20 15:29] LABS: Troponin I Less than 0.010 ng/mL (< 0.028)
[2023-11-20 17:18] LABS: Bacteria/HPF None Seen HPF (None Seen); Bilirubin Negative (Negative); Blood, Urine Negative (Negative); CAUTI Indications for Culture Dysuria,urgency,freq; Clarity Clear (Clear); Glucose, Urine (Dipstick) Normal (Negative); Ketone, Urine Negative (Negative); Leukocyte Negative Leu/uL (Negative); Nitrite Negative (Negative); Protein, Urine (Dipstick) Negative (Neg-Trace); RBC/HPF 0-3 HPF (0-3); Specific Gravity, Urine 1.012 (1.002-1.036); Squamous Epithelial 0-3 HPF (0-3); Urobilinogen Normal mg/dL (Less than 2); WBC/HPF 0-3 HPF (0-3); pH, Urine 6.5 (5.0-9.0)
[2023-11-20 17:19] LABS: Urine Culture Reflex No No
== END 2023-11-20 17:34 | disposition home or self-care (01) ==
LOC: ERS 14:31
DX: O99.891 Other specified diseases and conditions complicating pregnancy (principal); R11.0 Nausea; O99.511 Diseases of the respiratory system complicating pregnancy, first trimester; J45.909 Unspecified asthma, uncomplicated; Z3A.08 8 weeks gestation of pregnancy; Z55.6 Problems related to health literacy
CPT/HCPCS: 36416; 80053; 81001; 84484; 84702; 85025; 93005; 99284; Q0162

== ENCOUNTER 2024-02-20 11:47 | Outpatient (CLI) | payer OTHER | END 2024-02-20 11:48 | disposition home or self-care (01) | LOC: BICULT 11:47 | DX: Z33.1 Pregnant state, incidental (principal); Z3A.20 20 weeks gestation of pregnancy | CPT/HCPCS: 76805 ==